=== PATIENT | female | born 1990 | race Caucasian/White ===

== ENCOUNTER 2024-09-28 07:50 | Day surgery (SDC) | payer MEDICAID, SELFPAY ==
[2024-09-27 10:36] VITALS: BMI 32.0
[2024-09-28] VITALS (13 sets, daily range): BP systolic 118–140; BP diastolic 76–87; PULSE 64–117; RESP 10–22; TEMP 36.1–36.6; O2SAT 99–100; BMI 29.4
[2024-09-28] MEDS: SODIUM CHLORIDE 0.9% 500 ML 500 ML 20 ML IV (09:58)
[2024-09-28] MEDS: BENZOCAINE 20% (Hurricaine) SPRAY 1 DOSE TOP (09:58)
[2024-09-28] MEDS: DiphenhydrAMINE INJ 50 MG/ML VIAL 25 MG IV (10:03)
[2024-09-28] MEDS: fentaNYL CIT INJ 50 mCg/ML AMP 2ML (ASD USE ONLY) IV (10:06)
[2024-09-28] MEDS: MIDAZOLAM INJ 1 MG/ML VIAL 2 ML (ASD USE ONLY) 2 MG IV (10:13)
[2024-09-28] MEDS: SIMETHICONE 40 MG/0.6 ML ORAL SYRINGE PO (10:27)
--- NOTE | 2024-09-28 10:32 | SUR.PHASEII ---
PATIENT INTO RECOVERY ROOM WITH NO ACUTE DISTRESS NOTED, V/S STABLE, PATIENT DENIES PAIN AND NAUSEA. REPORT RECEIVED FROM BLANCA RN/ADRYAN RN.
--- NOTE | 2024-09-28 11:05 | SUR.PHASEII ---
ATTEMPTED TO CALL PATIENT'S BROTHER ELMA X2 WITH NO ANSWER AND UNABLE TO LEAVE VOICEMAIL.
== END 2024-09-28 11:41 | disposition home or self-care (01) ==
PROVIDERS: PCP Family Medicine; Referring Provider Internal Medicine Gastroenterology; Visit Provider Internal Medicine Gastroenterology
PROC: 0DBE8ZX Excision of Large Intestine, Via Natural or Artificial Opening Endoscopic, Diagnostic (ICD-10-PCS; CPT 45380; principal; 2024-09-28 08:30)
PROC: (CPT 43239; 2024-09-28 08:30)
DX: K64.1 Second degree hemorrhoids (principal); K31.89 Other diseases of stomach and duodenum; K20.90 Esophagitis, unspecified without bleeding; K44.9 Diaphragmatic hernia without obstruction or gangrene; K31.A0 Gastric intestinal metaplasia, unspecified
CPT/HCPCS: 45380; 81025; A4649; J1200; J2250; J3010; J7040; A9270

== ENCOUNTER 2025-02-20 10:40 | Day surgery (SDC) | payer MEDICAID, SELFPAY ==
[2025-02-20] VITALS (9 sets, daily range): BP systolic 108–154; BP diastolic 73–107; PULSE 67–104; RESP 12–19; TEMP 36.3–36.4; O2SAT 98–100; BMI 32.1
[2025-02-20] MEDS: BENZOCAINE 20% (Hurricaine) SPRAY 1 DOSE TOP (12:33)
[2025-02-20] MEDS: RINGERS LACTATED 500 ML 500 ML 20 ML IV (12:35)
[2025-02-20] MEDS: fentaNYL CIT INJ 50 mCg/ML AMP 2ML (ASD USE ONLY) IVP (12:36)
[2025-02-20] MEDS: MIDAZOLAM INJ 1 MG/ML VIAL 2 ML (ASD USE ONLY) 2 MG IVP (12:36)
== END 2025-02-20 13:05 | disposition home or self-care (01) ==
PROVIDERS: PCP Family Medicine; Referring Provider Internal Medicine Gastroenterology; Visit Provider Internal Medicine Gastroenterology
PROC: (CPT 43239; principal; 2025-02-20 11:15)
DX: K29.70 Gastritis, unspecified, without bleeding (principal); K22.89 Other specified disease of esophagus; I10 Essential (primary) hypertension; K20.90 Esophagitis, unspecified without bleeding
CPT/HCPCS: 43239; 81025; A4217; A4649; J1200; J2250; J3010; J7120; A9270